=== PATIENT | male | born 1975 | race Caucasian/White ===

== ENCOUNTER 2021-03-09 17:29 | Emergency (ER) | payer BC ==
[2021-03-09] MEDS ORDERED: Diphtheria,Pertussis(Acell),Tetanus Vaccine 0.5 ML Syringe IM ONE (17:58)
--- NOTE | 2021-03-09 18:45 | EDM.PDOC ---
ED HPI GENERAL MEDICAL PROBLEM - General Chief Complaint: Laceration Stated Complaint: RT THUMB LACERATION Time Seen by Provider: 03/09/21 17:45 Source of Information: Reports: Patient History Limitations: Reports: No Limitations - History of Present Illness INITIAL COMMENTS - FREE TEXT/NARRATIVE: HISTORY AND PHYSICAL: History of present illness: The patient is a 45-year-old male who presents to the emergency room with complaints of right thumb laceration. The patient accidentally hit a button on the oscar [email or web address] thrower and the metal bar slammed into the patient's right an terior thumb causing a horizontal laceration. The patient did not cleaned the wound at home nor did he take anything for pain. The patient has never had any injury to the thumb prior to this evening. The patient thinks his last tetanus vaccination was over 10 years ago. Patient denies any fever, chills, headache, change in vision, syncope or near syncope. Denies any chest pain, back pain, shortness of breath or cough. Denies any abdominal pain, nausea, vomiting, diarrhea, constipation or dysuria. Has not noted any blood in urine or stool. Patient has been eating and drinking appropriately. Review of systems: As per history of present illness and below otherwise all systems reviewed and negative. Past medical history: As per history of present illness and as reviewed below otherwise noncontributory. Surgical history: As per history of present illness and as reviewed below otherwise noncontributory. Social history: See social history for further information Family history: As per history of present illness and as reviewed below otherwise noncontributory. Physical exam: General: Well developed and well nourished. Alert and orientated x 3. Nontoxic in appearance and in no acute distress. Vital signs are stable and have been reviewed by me. Nursing notes were reviewed. HEENT: Atraumatic, normocephalic, pupils equal and reactive bilaterally, negative for conjunctival pallor or scleral icterus, mucous membranes moist, TMs normal bilaterally, throat clear, neck supple, nontender, trachea midline. No drooling or trismus noted. No meningeal signs. No hot potato voice noted. Lungs: Clear to auscultation bilaterally. No wheezes, rales, or rhonchi. Chest nontender. Normal work of breathing, no accessory muscles used. Heart: S1S2, regular rate and rhythm without overt murmur, gallops, or rubs. No JVD. No peripheral edema Abdomen: Soft, nondistended, nontender. Normoactive bowel sounds. Negative for masses or costovertebral tenderness. Skin: laceration dorsum proximal phalanx. No bleeding. CMS intact. dorsum Warm & dry. No lesions or rashes noted. Hematologic: No petechiae or purpra. Mucosa appropriate color and normal nail bed color and refill. Extremities: Atraumatic, moves all extremities per self without difficulty or deficits, negative for cords or calf pain. Neurovascular unremarkable. Neuro: Awake, alert, oriented. Cranial nerves II through XII unremarkable. Cerebellum unremarkable. Motor and sensory unremarkable throughout. Exam nonfocal. Psychiatric: Mood and affect are appropriate. Normal thought process. Answering questions appropriately. Notes: *This patient was seen and evaluated during the 2019 SARS-CoV-2 novel coronavirus pandemic period. Community viral transmission is ongoing at time of this encounter and the emergency department is operating under pandemic response procedures. After examination and discussion the patient is agreeable to a tetanus, x-ray of the thumb, and suture repair of laceration. Patient declines any pain medication. Right hand x-ray Findings/Impression: Bones: An acute nondisplaced intra-articular fracture at the base of the 1st proximal phalanx. A chronic 5th metacarpal deformity. No dislocation. Joint spaces: Unremarkable. Soft tissues: Focal soft tissue injury/laceration in the proximal thumb. Apparent ovoid soft tissue lucencies with thin peripheral density in the distal 4th and 5th digits, not seen on the lateral view, nonspecific. Correlate clinically. Case reviewed with Dr. Irby. The patient right thumb laceration is 2 cm, no extensive soft tissue damage and slight contamination meeting a grade II Gustilo-Michael grading scale. I will treat the fracture with Ancef 2 g IV in the emergency room. I will prescribe Keflex 500 mg twice daily for 14 days. Right thumb laceration was approximated with 3 sutures. Please see procedure note. The patient tolerated the procedure well. The patient was educated on laceration care, the need for the antibiotic due to the open fracture, and the need for orthopedic follow-up. Post splint application CMS intact. I have talked with the patient about today's findings, in addition to providing specific details for plan of care. Reassessment at the time of disposition demonstrates that the patient is in no acute distress. The patient is stable for discharge, counseling was provided and we discussed in great detail signs and symptoms that would prompt them to return to the Emergency Department. Medication, follow up and supportive care measures were reviewed and discussed. Voices understanding and is agreeable to plan of care. Denies any further questions or concerns at this time. Diagnostics:right hand x-ray Therapeutics: Lidocaine 1%, Right thumb spica for proper alignment and patient comfort to wear until follow up with orthopedic. Prescription: Keflex 500 mg twice daily for 14 days Impression: Open fracture right thumb, laceration right thumb Plan: 1. You were evaluated today on an emergent basis. Your right thumb laceration was evaluated with an x-ray and found to have a fracture. You were treated with IV Ancef 2 g and prescribed Keflex 500 mg twice a day for 14 days due to the open fracture. I advise to take a probiotic to prevent any associated diarrhea from taking the antibiotics. You can use Motrin 600 mg every 6-8 hours or Motrin 800 mg every 8 hours for pain control. Keep the area clean and dry. Do not submerge your hand in water. Monitor for signs of infection such as increased redness, increased swelling, or increased pain or abnormal drainage. You will need to follow-up with orthopedic hand surgeon. You can use bacitracin ointment on the area but stay away from triple antibiotic ointment as this can cause a rash. You were given a tetanus booster today. Keep this in your records. 2. You can alternate Tylenol and ibuprofen as needed for pain and fever management. 3. We encourage you to follow up with your primary care provider and/or recommended specialist in the next few days for re-evaluation and further care/management. 4. If your symptoms should worsen, new symptoms develop or any of the signs and symptoms we discussed should arise please return to the emergency room or call 911 (if needed). Definitive disposition and diagnosis as appropriate pending reevaluation and review of above. Right Finger-Thumb Pain Score (Numeric/FACES): 6 - Related Data Allergies Allergy/AdvReac Type Severity Reaction Status Date / Time No Known Allergies Allergy Verified 03/09/21 17:47 Home Meds: Home Meds Losartan/Hydrochlorothiazide [Losartan-HCTZ 100-12.5 MG] 1 tab PO DAILY 03/09/21 [History] Rosuvastatin [Crestor] 10 mg PO DAILY 03/09/21 [History] cephALEXin [Keflex] 500 mg PO BID 14 Days #28 cap 03/09/21 [Rx] Past Medical History Cardiovascular History: Reports: High Cholesterol, Hypertension Social & Family History - Family History Family Medical History: No Pertinent Family History - Tobacco Use Tobacco Use Status *Q: Never Tobacco User Second Hand Smoke Exposure: No - Recreational Drug Use Recreational Drug Use: No ED ROS GENERAL - Review of Systems Review Of Systems: Comprehensive ROS is negative, except as noted in HPI. (See dictation) ED EXAM, SKIN/RASH Exam: See Below ED SKIN PROCEDURES - Laceration/Wound Repair Right Dorsal Digit - 1st (Thumb) Appearance: Superficial, Linear, Clean Distal NVT: Neuro & Vascular Intact Anesthetic Type: Local Local Anesthesia - Lidocaine (Xylocaine): 1% Plain Local Anesthetic Volume: 5cc Skin Prep: Chlorhexidine (Hibiciens), Saline Saline Irrigation (cc's): 100 Exploration/Debridement/Repair: Wound Explored, No Foreign Material Found Closed with: Sutures Lac/Wound length In cm: 2 Suture Size: 3-0 # of Sutures: 3 Course - Vital Signs Last Recorded V/S: Last Vital Signs Temp 96.6 F L 03/09/21 17:42 Pulse 64 03/09/21 17:42 Resp 18 03/09/21 17:42 BP 108/69 03/09/21 17:42 Pulse Ox 98 03/09/21 17:42 - Orders/Labs/Meds Orders: Active Orders 24 hr Category Date Time Status Vaccines to be Administered [RC] PER UNIT ROUTINE Care 03/09/21 17:59 Active DME for Discharge [COMM] Stat Oth 03/09/21 19:43 Ordered Meds: Medications Discontinued Medications Generic Name Dose Route Start Last Admin Trade Name Freq PRN Reason Stop Dose Admin Bacitracin 1 dose 03/09/21 19:43 03/09/21 20:01 Bacitracin Oint 1 Gm U/D Packet TOP 03/09/21 19:44 1 dose ONETIME ONE Administration Diphtheria/Tetanus/Acell Pertussis 0.5 ml 03/09/21 17:58 03/09/21 18:06 Diphtheria,Pertussis(Acell),Tetanus Vaccine 0.5 Ml Syringe IM 03/09/21 17:59 0.5 ml .ONCE ONE Administration Cefazolin Sodium/Dextrose 1 gm 50 mls @ 100 mls/hr 03/09/21 19:10 03/09/21 19:22 / Premix IV 03/09/21 19:39 100 mls/hr ONETIME ONE Administration Cefazolin Sodium/Dextrose 1 gm 50 mls @ 100 mls/hr 03/09/21 19:13 03/09/21 19:24 / Premix IV 03/09/21 19:42 100 mls/hr ONETIME ONE Administration Lidocaine HCl 5 ml 03/09/21 18:27 03/09/21 18:31 Lidocaine 1% 5 Ml Sdv INJECT 03/09/21 18:28 5 ml ONETIME ONE Administration Lidocaine HCl 2 ml 03/09/21 19:16 03/09/21 19:23 Lidocaine 1% Pf 2 Ml Sdv INJECT 03/09/21 19:17 2 ml ONETIME ONE Administration Departure - Departure Time of Disposition: 20:01 Disposition: Home, Self-Care 01 Condition: Good Clinical Impression: Fracture of bone, Laceration - Discharge Information *PRESCRIPTION DRUG MONITORING PROGRAM REVIEWED*: Not Applicable *COPY OF PRESCRIPTION DRUG MONITORING REPORT IN PATIENT AUGIE: Not Applicable Prescriptions: cephALEXin [Keflex] 500 mg PO BID 14 Days #28 cap Instructions: Thumb Fracture, Laceration Care, Adult, [id number] Referrals: Edward Mccall MD [Primary Care Provider] - Forms: ED Department Discharge Additional Instructions: The following information is given to patients seen in the emergency department who are being discharged to home. This information is to outline your options for follow-up care. We provide all patients seen in our emergency department with a follow-up referral. The need for follow-up, as well as the timing and circumstances, are variable depending upon the specifics of your emergency department visit. If you don't have a primary care physician on staff, we will provide you with a referral. We always advise you to contact your personal physician following an emergency department visit to inform them of the circumstance of the visit and for follow-up with them and/or the need for any referrals to a consulting specialist. The emergency department will also refer you to a specialist when appropriate. This referral assures that you have the opportunity for follow-up care with a specialist. All of these measure are taken in an effort to provide you with optimal care, which includes your follow-up. Under all circumstances we always encourage you to contact your private physician who remains a resource for coordinating your care. When calling for follow-up care, please make the office aware that this follow-up is from your recent emergency room visit. If for any reason you are refused follow-up, please contact the [facility] Emergency Department at and asked to speak to the emergency department charge nurse. [facility] [address] [place] [address], [address] [place] [address] [facility] [address] [place] [address] Plan: 1. You were evaluated today on an emergent basis. Your right thumb laceration was evaluated with an x-ray and found to have a fracture. You were treated with IV Ancef 2 g and prescribed Keflex 500 mg twice a day for 14 days due to the open fracture. I advise to take a probiotic to prevent any associated diarrhea from taking the antibiotics. You can use Motrin 600 mg every 6-8 hours or Motrin 800 mg every 8 hours for pain control. Keep the area clean and dry. Do not submerge your hand in water. Monitor for signs of infection such as increased redness, increased swelling, or increased pain or abnormal drainage. You will need to follow-up with orthopedic hand surgeon. You can use bacitracin ointment on the area but stay away from triple antibiotic ointment as this can cause a rash. You were given a tetanus booster today. Keep this in your records. 2. You can alternate Tylenol and ibuprofen as needed for pain and fever management. 3. We encourage you to follow up with your primary care provider and/or recommended specialist in the next few days for re-evaluation and further care/management. 4. If your symptoms should worsen, new symptoms develop or any of the signs and symptoms we discussed should arise please return to the emergency room or call 911 (if needed). Sepsis Event Note (ED) - Evaluation Sepsis Screening Result: No Definite Risk - Focused Exam Vital Signs: Vital Signs Temp Pulse Resp BP Pulse Ox 03/09/21 17:42 96.6 F L 64 18 108/69 98 - My Orders Last 24 Hours: My Active Orders 03/09/21 17:59 Vaccines to be Administered [RC] PER UNIT ROUTINE 03/09/21 19:43 DME for Discharge [COMM] Stat - Assessment/Plan Last 24 Hours: My Active Orders 03/09/21 17:59 Vaccines to be Administered [RC] PER UNIT ROUTINE 03/09/21 19:43 DME for Discharge [COMM] Stat
--- NOTE | 2021-03-09 19:00 | CR ---
Indication: Trauma. Thumb laceration Technique: Three views of the right Comparison: 11/14/2018 Findings/Impression: Bones: An acute nondisplaced intra-articular fracture at the base of the 1st proximal phalanx. A chronic 5th metacarpal deformity. No dislocation. Joint spaces: Unremarkable. Soft tissues: Focal soft tissue injury/laceration in the proximal thumb. Apparent ovoid soft tissue lucencies with thin peripheral density in the distal 4th and 5th digits, not seen on the lateral view, nonspecific. Correlate clinically. Dictated by Logan High MD @ 03/09/2021 6:58:[address] Logan High @ Mar 09 2021 6:58PM
[2021-03-09] MEDS ORDERED: ceFAZolin 1 GM in Premix Bag 1 BAG IV ONE ×2 (19:10→19:13)
[2021-03-09] MEDS ORDERED: Lidocaine 1% PF 2 ML SDV INJECT ONE (19:16)
[2021-03-09] MEDS ORDERED: Bacitracin Oint 1 GM U/D Packet TOP ONE (19:43)
== END 2021-03-09 20:21 | disposition home or self-care (01) ==
LOC: MW.ED 17:29
DX: S62.514B Nondisplaced fracture of proximal phalanx of right thumb, initial encounter for open fracture (principal); E78.00 Pure hypercholesterolemia, unspecified; I10 Essential (primary) hypertension; Z79.899 Other long term (current) drug therapy; Z23 Encounter for immunization; W26.8XXA Contact with other sharp object(s), not elsewhere classified, initial encounter
CPT/HCPCS: 12001; 73130; 90471; 90715; 96365; 99283; J0690

== ENCOUNTER 2024-05-19 09:30 | Day surgery (SDC) | payer BC ==
[~2024-05-19 09:30] MED LIST: Lactated Ringers 1,000 ML IV SCH
[2024-05-19] MEDS ORDERED: propofoL 50 ML ONE (11:13)
== END 2024-05-19 12:35 | disposition home or self-care (01) ==
LOC: MW.SDS 09:30
PROVIDERS: ATTEND Surgery
DX: Z12.11 Encounter for screening for malignant neoplasm of colon (principal); D12.2 Benign neoplasm of ascending colon; D12.4 Benign neoplasm of descending colon; K62.1 Rectal polyp; K57.30 Diverticulosis of large intestine without perforation or abscess without bleeding; I10 Essential (primary) hypertension; E78.00 Pure hypercholesterolemia, unspecified; Z79.899 Other long term (current) drug therapy
CPT/HCPCS: 45380; J2704; J7120; 00811